=== PATIENT | female | born 1990 | race American Indian/Alaskan Native ===

== ENCOUNTER 2020-06-01 18:22 | Emergency (ER) | payer OTHER ==
--- NOTE | 2020-06-01 19:18 | Event Note ---
ED Screening Note Date of service: 06/01/20 Time: 19:16 ED Screening Note: 30 y o f at about 13 weeks gestation with LMP of January and SASHA of 11/22/20 presents with low abd pain x 1 week denies vaginal bleed, d/c or ua symtoms OB care at : [facility] in [place] pt cc of luq pain x 2 weeks worse with movt This initial assessment/diagnostic orders/clinical plan/treatment(s) is/are subject to change based on patients health status, clinical progression and re- assessment by fellow clinical providers in the ED. Further treatment and workup at subsequent clinical providers discretion. Patient/guardian urged not to elope from the ED as their condition may be serious if not clinically assessed and managed. Initial orders include: labs, ua, preg us
[2020-06-01 19:29] LABS: Bacteria,Urine 1+ /HPF (Negative); Bilirubin,Urine NEG (Negative); Blood,Urine NEG (Negative); Color,Urine Yellow (Yellow); Mucus,Urine FEW /HPF; Protein,Urine <15 mg/dL mg/dL (Negative); Urobilinogen,Urine < 2.0 mg/dL (<2.0)
[2020-06-01 19:55] LABS: Basophils # (Auto) 0.1 K/mm3 (0.0-0.1); Basophils % (Auto) 0.5 % (0.0-1.8); Eosinophils # (Auto) 0.1 K/mm3 (0.0-0.4); Eosinophils % (Auto) 0.6 % (0.0-4.3); Hematocrit 36.6 % (30.3-42.9); Hemoglobin 12.7 gm/dl (10.1-14.3); Lymphocytes # (Auto) 2.3 K/mm3 (1.2-5.4); Lymphocytes % (Auto) 23.6 % (13.4-35.0); Mean Corpuscular HGB Conc 35 % (30-34); Mean Corpuscular Volume 83 fl (79-97); Monocytes # (Auto) 0.7 K/mm3 (0.0-0.8); Monocytes % (Auto) 6.8 % (0.0-7.3); Platelet Count 336 K/mm3 (140-440); Red Blood Count 4.42 M/mm3 (3.65-5.03); Red Cell Distribution Width 13.9 % (13.2-15.2)
[2020-06-01 20:17] LABS: Alanine Aminotransferase 9 units/L (7-56); Blood Urea Nitrogen 7 mg/dL (7-17); Calcium 9.3 mg/dL (8.4-10.2); Hemolysis Index 9
[2020-06-01 20:18] LABS: BUN/Creatinine Ratio 12
--- NOTE | 2020-06-02 03:52 | Ultrasound Report ---
TRANSABDOMINAL OB PELVIC ULTRASOUND INDICATION / CLINICAL INFORMATION: Left upper quadrant and pelvic pain. COMPARISON: None available. FINDINGS: There is a single intrauterine with an estimated sonographic gestational age of 13 weeks 4 days and an EDC of 12/04/2020. Clinical dates are 13 weeks 3 days. The heart rate is 160 bpm. Fet al presentation is cephalic. The placenta is located anteriorly, is grade 0 and is free of the os. Am niotic fluid volume is normal. The uterine cervix measures 3.7 cm in length and the internal os is cl osed. No abnormality is seen. Neither ovary is identified. There is no evidence of adnexal mass or free fluid. IMPRESSION: Single viable 13 week 4 day intrauterine without complication. Signer Name: Westley Akbar MD Signed: 06/02/2020 3:47 AM Workstation Name: [email or web address]
[2020-06-02 06:22] VITALS: BP 109/66
--- NOTE | 2020-06-02 06:31 | Emergency Department Report ---
ED HPI - General Chief complaint: Abdominal Pain Stated complaint: 13 WKS /CHEST PAIN Time Seen by Provider: 06/02/20 06:08 Source: patient Mode of arrival: Ambulatory Limitations: No Limitations - History of Present Illness Initial comments: 30-year-old female, 13 weeks , presents to ED with abdominal pain. Patient states she has been experiencing lower abdominal and left upper quadrant abdominal pain x2 weeks, becoming worse yesterday. She denies any vaginal bleeding, fever. Patient reports she is followed by [facility] in [place]. Complaint: abdominal pain -: week(s) (2) Location: other (Suprapubic, left upper quadrant) Severity: moderate Quality: aching Consistency: intermittent Improves with: none Worsens with: movement Associated symptoms: denies: nausea/vomiting, vaginal bleeding, dysuria Vaginal bleeding: none :: Yes Number of weeks : 13 - Related Data Allergies Allergy/AdvReac Type Severity Reaction Status Date / Time No Known Allergies Allergy Unverified 06/01/20 19:09 ED Review of Systems ROS: Stated complaint: 13 WKS /CHEST PAIN Other details as noted in HPI Comment: All other systems reviewed and negative Constitutional: denies: fever Gastrointestinal: abdominal pain. denies: nausea, vomiting Genitourinary: other (Denies vaginal bleeding) ED Past Medical Hx - Past Medical History Previous Medical History?: No - Social History Smoking Status: Never Smoker Substance Use Type: None ED Physical Exam - General Limitations: No Limitations General appearance: alert, in no apparent distress - Head Head exam: Present: atraumatic, normocephalic - Eye Eye exam: Present: normal appearance, EOMI - ENT ENT exam: Present: mucous membranes moist - Neck Neck exam: Present: normal inspection - Respiratory Respiratory exam: Present: normal lung sounds bilaterally. Absent: respiratory distress - Cardiovascular Cardiovascular Exam: Present: regular rate, normal rhythm - GI/Abdominal GI/Abdominal exam: Present: soft. Absent: tenderness - Extremities Exam Extremities exam: Present: normal inspection - Neurological Exam Neurological exam: Present: alert, oriented X3 - Psychiatric Psychiatric exam: Present: normal affect, normal mood - Skin Skin exam: Present: warm, dry, intact, normal color ED Course Vital Signs 06/01/20 06/01/20 06/02/20 19:05 23:30 06:21 Temperature 99 F 98.8 F 98.9 F Pulse Rate 99 H 78 99 H Respiratory 18 18 18 Rate Blood Pressure 97/68 Blood Pressure 102/70 109/66 [Left] O2 Sat by Pulse 99 99 99 Oximetry ED Medical Decision Making - Lab Data Result diagrams: 06/01/20 Unknown 06/01/20 Unknown - Radiology Data Radiology results: report reviewed, image reviewed - Medical Decision Making Vital signs stable. Ultrasound shows normal IUP. Patient reports pain is currently resolved. Labs are also unremarkable. Will discharge at this time. Outpatient follow-up advised. Return precautions given. - Differential Diagnosis IUP, ectopic , threatened AB, UTI Critical care attestation.: If time is entered above; I have spent that time in minutes in the direct care of this critically ill patient, excluding procedure time. ED Disposition Clinical Impression: 13 weeks gestation of , Abdominal pain Disposition: - TO HOME OR SELFCARE Is pt being admited?: No Condition: Stable Instructions: Abdominal Pain in (ED) Referrals: PRIMARY CARE, [Primary Care Provider] - 3-5 Days Forms: Work/School Release Form(ED) Time of Disposition: 06:37
== END 2020-06-02 06:45 | disposition home or self-care (01) ==
LOC: ED 18:22
DX: O26.891 Other specified pregnancy related conditions, first trimester (principal); R10.2 Pelvic and perineal pain; R10.12 Left upper quadrant pain; Z3A.13 13 weeks gestation of pregnancy
CPT/HCPCS: 36415; 76801; 80053; 81001; 83690; 84702; 85025; 93005